=== PATIENT | female | born 1985 | race Hispanic/Latino ===

== ENCOUNTER 2018-06-16 05:11 | Observation (INO) | payer OTHER ==
[~2018-06-16] VITALS: Ht 149.9 cm; Wt 70.9 kg
[2018-06-16] MEDS ORDERED: IPRATROPIUM/ALBUTEROL SULFATE 3 ML SOLUTION IH ONE ×4 (05:13→13:38)
[2018-06-16] MEDS ORDERED: METHYLPREDNISOLONE SOD SUCC 125MG/2ML VIAL ONE (05:24)
[2018-06-16] MEDS ORDERED: MAGNESIUM 2GM PREMIX 50ML 50 ML IV ONE (05:24)
[2018-06-16 05:28] LABS: ABG BASE EXCESS -4.3 mmol/L (-2.0-3.0); ABG HCO3 20.9 mmol/L (21.0-28.0); ABG OXYGEN SATURATION 96.1 % (95.0-99.0); ABG PCO2 39 mmHg (32-45)
[2018-06-16 05:29] LABS: BASOPHILS % (AUTO) 0.4 % (0.0-5.0); EOSINOPHILS % (AUTO) 11.6 % (0.0-8.0); HEMATOCRIT 40.1 % (36-48); LYMPHOCYTES % (AUTO) 29.3 % (21.0-51.0); MEAN CORPUSCULAR HGB CONC 34.6 g/dL (32.0-36.0); MEAN CORPUSCULAR VOLUME 95.4 fL (79-99); NEUTROPHILS % (AUTO) 51.7 % (40.0-77.0); PLATELET COUNT (AUTO) 347 K/uL (130-400); RED CELL DISTRIBUTION WIDTH 14.7 % (11.0-15.5); WHITE BLOOD COUNT (AUTO) 15.2 K/uL (4.8-10.8)
[2018-06-16 05:44] LABS: ALBUMIN 3.8 g/dL (3.5-5.0); BILIRUBIN,TOTAL 0.2 mg/dL (0.2-1.0); CREATININE 0.7 mg/dL (0.5-1.5); POTASSIUM 3.7 mmol/L (3.5-5.1); TOTAL PROTEIN, SERUM 8.3 g/dL (6.0-8.3)
[2018-06-16 05:57] LABS: B-TYPE NATRIURETIC PEPTIDE 9 pg/mL (0-100)
[2018-06-16] MEDS ORDERED: KETOROLAC TROMETHAMINE 30MG/ML ONE (06:18)
[2018-06-16 07:09] LABS: APPEARANCE,URINE Clear (CLEAR); BILIRUBIN,URINE Negative (NEGATIVE); COLOR,URINE Yellow (YELLOW); GLUCOSE, URINE (UA) Negative (NEGATIVE); KETONES,URINE 15 mg/dL (NEGATIVE); LEUKOCYTE ESTERASE ,URINE Negative (NEGATIVE); NITRATE,URINE Negative (NEGATIVE); OCCULT BLOOD,URINE Trace (NEGATIVE); PH,URINE 5.5 (5.0-8.0); PROTEIN,URINE Negative (NEGATIVE); UROBILINOGEN,URINE 0.2 mg/dL (0.2-1.0)
[2018-06-16 07:16] LABS: AMPHET/METH SCREEN,URINE NEGATIVE (NEGATIVE); BARBITURATE SCREEN, URINE NEGATIVE (NEGATIVE); BENZODIAZEPINES SCREEN,URINE NEGATIVE (NEGATIVE); CANNABINOID SCREEN,URINE NEGATIVE (NEGATIVE); COCAINE SCREEN,URINE NEGATIVE (NEGATIVE); OPIATE SCREEN,URINE NEGATIVE (NEGATIVE); PHENCYCLIDINE SCREEN,URINE NEGATIVE (NEGATIVE)
[2018-06-16 07:21] LABS: HCG,QUAL RESULT NEGATIVE (NEGATIVE)
[2018-06-16 07:39] LABS: BACTERIA,URINE Rare /HPF (None Seen); RBC,URINE 0-1 /HPF (0-1); SQUAMOUS EPITHELIAL CELL,UR Rare /HPF (0-2); WBC,URINE None Seen /HPF (0-1)
[2018-06-16] MEDS: SODIUM CHLORIDE 0.9% 1000ML 1,000 ML IV SCH (07:49)
[2018-06-16] MEDS ORDERED: METHYLPREDNISOLONE SOD SUCC 125MG/2ML VIAL IV SCH (08:00)
[2018-06-16] MEDS ORDERED: ACETAMINOPHEN-CODEINE 300/30MG TAB PO PRN (08:00)
[2018-06-16] MEDS ORDERED: ACETAMINOPHEN 325 MG TAB PO PRN (08:00)
[2018-06-16] MEDS ORDERED: ONDANSETRON HCL 4 MG/2 ML VIAL IV PRN (08:00)
[2018-06-16] MEDS ORDERED: GUAIFENESIN-DM 200/20 MG 10 ML PO PRN (08:00)
[2018-06-16] MEDS ORDERED: FAMOTIDINE 20MG TAB 20 MG TAB ONE (09:37)
[2018-06-16] MEDS ORDERED: METHYLPREDNISOLONE SOD SUCC 40MG/ML 1ML ONE ×2 (09:37→14:25)
[2018-06-16] MEDS ORDERED: ACETAMINOPHEN-CODEINE 300/30MG TAB ONE (09:51)
[2018-06-16] MEDS: IPRATROPIUM/ALBUTEROL SULFATE 3 ML SOLUTION IH SCH ×4 (10:48→21:37)
[2018-06-16 15:30] VITALS: BP 111/65
--- NOTE | 2018-06-16 16:00 | NUR ---
PT ADMITTED TO ROOM 332, PER SERVICES OF DR. CHAVEZ , PT ON 2 LITER NC . DENIES ANY SOB . OR ASTHMA DISCOMFORT COUGHING WITH NO SECREATION DRY . COUGH , WILL BE PLACED ON DROPLET . REVIEW FALL RISK , AND CALL LIGHT INREACH .
[2018-06-16] MEDS: METHYLPREDNISOLONE SOD SUCC 125MG/2ML VIAL IV SCH ×2 (18:05→21:09)
[2018-06-16] MEDS: CETIRIZINE HCL 5 MG TABLET PO SCH (18:05)
[2018-06-16] MEDS: BUDESONIDE 0.25 MG/2 ML INH IH SCH (18:44)
[2018-06-16 19:15] VITALS: BP 113/60
[2018-06-16] MEDS: FAMOTIDINE 20MG TAB 20 MG TAB PO SCH (21:10)
[2018-06-17 00:01] VITALS: BP 95/48
[2018-06-17] MEDS: METHYLPREDNISOLONE SOD SUCC 125MG/2ML VIAL IV SCH ×3 (00:25→12:12)
[2018-06-17] MEDS: IPRATROPIUM/ALBUTEROL SULFATE 3 ML SOLUTION IH SCH ×4 (01:05→13:47)
[2018-06-17] MEDS: SODIUM CHLORIDE 0.9% 1000ML 1,000 ML IV SCH (02:35)
[2018-06-17 03:20] VITALS: BP 102/58
[2018-06-17 04:40] LABS: BASOPHILS % (AUTO) 0.1 % (0.0-5.0); HEMATOCRIT 35.4 % (36-48); LYMPHOCYTES % (AUTO) 6.8 % (21.0-51.0); MEAN CORPUSCULAR HEMOGLOBIN 32.7 pg (27.0-33.0); MEAN CORPUSCULAR HGB CONC 34.2 g/dL (32.0-36.0); MEAN CORPUSCULAR VOLUME 95.6 fL (79-99); MONOCYTES % (AUTO) 3.3 % (3.0-13.0); NEUTROPHILS % (AUTO) 89.8 % (40.0-77.0); PLATELET COUNT (AUTO) 342 K/uL (130-400); RED CELL DISTRIBUTION WIDTH 14.9 % (11.0-15.5); WHITE BLOOD COUNT (AUTO) 17.1 K/uL (4.8-10.8)
[2018-06-17 05:19] LABS: CREATININE 0.6 mg/dL (0.5-1.5); POTASSIUM 3.5 mmol/L (3.5-5.1)
[2018-06-17] MEDS: BUDESONIDE 0.25 MG/2 ML INH IH SCH (06:52)
[2018-06-17 08:00] VITALS: BP 97/53
[2018-06-17] MEDS ORDERED: METFORMIN HCL 500 MG TAB.SR.24H PO SCH (08:00)
[2018-06-17] MEDS ORDERED: GLIPIZIDE XL 10MG TAB PO SCH (08:00)
--- NOTE | 2018-06-17 08:00 | NUR ---
PT AAO X 3 .REVIEW PLAN OF CARE, DENIES ANY SOB. NOTED NO WHEEZING ON ROOM AIR. CALL LIGHT IN REACH
[2018-06-17] MEDS ORDERED: MONTELUKAST SODIUM 10 MG TAB PO SCH (09:00)
[2018-06-17] MEDS ORDERED: LISINOPRIL 40 MG TABLET PO SCH (09:00)
[2018-06-17] MEDS: CETIRIZINE HCL 5 MG TABLET PO SCH (09:53)
[2018-06-17] MEDS: FAMOTIDINE 20MG TAB 20 MG TAB PO SCH (09:53)
[2018-06-17 12:00] VITALS: BP 81/34
[2018-06-17] MEDS ORDERED: GLIP10TA PO (13:00)
[2018-06-17] MEDS ORDERED: LISI40TA4 PO (13:00)
[2018-06-17] MEDS ORDERED: PRED20TA3 PO (13:00)
[2018-06-17] MEDS ORDERED: MONT10TA21 PO (13:00)
[2018-06-17] MEDS ORDERED: METF500T3 PO (13:00)
[2018-06-17] MEDS ORDERED: ALBU18HF7 IH (15:38)
--- NOTE | 2018-06-17 16:50 | NUR ---
PT DISCHARGE SUMMARY REVIEW WITH PT. . AT PRESENT . MEDICATION PRESCRIPTION . REVIEW . SL TO HER RT . HAND DC, WITH NO HEMATOMA. NOTED. NOTED NO SOB. OR WHEEZING . .
--- NOTE | 2018-06-17 17:00 | NUR ---
DASH NOTE PT AMD, INDP OF ADLS, DC ORDER, NO EEDS EXPRESSED TO DASH OR MILY CARD IA DEFERRED Addendum: 06/19/18 at 0849 by HUMBERTO DUNCAN RN CM Amended: Links added.
== END 2018-06-17 16:45 | disposition home or self-care (01) ==
LOC: EDH 05:11 → EDHIP 05:12 → 3AH 15:48
PROVIDERS: ADMIT Internal Medicine; ATTEND Internal Medicine
DX: J45.901 Unspecified asthma with (acute) exacerbation (principal); D72.829 Elevated white blood cell count, unspecified; E11.9 Type 2 diabetes mellitus without complications; I10 Essential (primary) hypertension; R09.02 Hypoxemia; Z82.49 Family history of ischemic heart disease and other diseases of the circulatory system; Z79.899 Other long term (current) drug therapy
CPT/HCPCS: 36415 ×2; 36600; 71045; 80048; 80053; 80305; 81001; 81025; 82803; 82948 ×4; 83880; 84484; 85025 ×2; 93005; 94640 ×12; 94664; 96374; 96375; 96376; 99291; G0378 ×36; J1885; J2920 ×2; J2930 ×4; J3475

== ENCOUNTER 2024-08-16 01:38 | Emergency (ER) | payer SELFPAY ==
[~2024-08-16] VITALS: Ht 152.4 cm; Wt 80.7 kg
[~2024-08-16 01:38] MED LIST: ALBU18HF7 IH; GLIP10TA2 PO; LISI40TA15 PO; METF500T3 PO; MONT-46 PO; PRED20TA3 PO
--- NOTE | 2024-08-16 02:10 | ERN ---
ED Note History of Present Illness Stated Complaint: VAGINAL BLEEDING Chief Complaint: Vaginal Bleeding Time Seen by : 01:43 Dictation: This is a 38-year-old female who came to the emergency room with complaints of vaginal bleeding that started today. Was just light pink tinged drainage she also had a picture on her cell phone of a small clot. She had only used 1 pad. Per her calculation it is 8 weeks or 10.5 weeks. Due date estimated is 03 09 25. She always has chronic pain in the left lower quadrant to the back during . Temperature 98 pulse 78 respirations 16 blood pressure 121/69 with a pulse oximetry of 98% on room air Patient has a history of hypertension diabetes and also asthma Allergies: Uncoded Allergies: NONE (Allergy, Unknown, 06/16/18) Home Meds Active Scripts Albuterol Sulfate (Ventolin Hfa) 18 Gm Hfa.aer.ad, 18 GM IH QID PRN for SHORTNESS OF BREATH for 30 Days, #30 INHALER Prov:NAIMA CHAVEZ Jr., MD 06/17/18 Prednisone (Prednisone) 20 Mg Tablet, 20 MG PO DAILY for 5 Days, #5 TAB Prov:NAIMA CHAVEZ Jr., MD 06/17/18 Glipizide (Glucotrol Xl) 10 Mg Tab.er.24, 10 MG PO DAILYBKFST for 30 Days, #30 MG Prov:NAIMA CHAVEZ Jr., MD 06/17/18 Montelukast Sodium (Singulair 10Mg) 10 Mg Tab, 10 MG PO DAILY for 30 Days, #30 TAB Prov:NAIMA CHAVEZ Jr., MD 06/17/18 Lisinopril (Lisinopril) 40 Mg Tablet, 40 MG PO DAILY for 30 Days, #30 TAB Prov:NAIMA CHAVEZ Jr., MD 06/17/18 Metformin HCl (Glucophage Xr) 500 Mg Tab.er.24h, 1000 MG PO DAILYBKFST for 30 Days, #30 TAB Prov:NAIMA CHAVEZ Jr., MD 06/17/18 Past Medical History Past Medical History: Asthma, Diabetes-Type II Surgical History: None Family History: Negative Social History: Negative : 3 Para: 2 RN Note Reviewed/Agreed w/PFSH: Yes Review of System Dictation Constitutional: Negative for fever,chills, and weight loss Eyes: Negative for injury, pain,redness, and discharge ENT: Negative for injury,pain or swelling Cardiovascular: Negative for chest pain, palpitations, and edema Respiratory: Negative for shortness of breath, cough, and wheezing, Abdomen/GI: Negative for abdominal pain, nausea, vomiting, diarrhea, and constipation Back: Negative for injury and pain : Negative for injury, bleeding and discharge positive for vaginal bleeding positive for MS/Extremity: Negative for injury and deformity Skin: Negative for rash, and discoloration Neuro: Negative for headache, weakness, numbness, tingling, and seizure Psych: Negative for suicide ideation, homicidal ideation, and hallucinations Initial Vital Sign VS Vital Signs Date Time Temp Pulse Resp B/P (MAP) Pulse Ox O2 Delivery O2 Flow Rate FiO2 08/16/24 01:39 98.1 78 16 121/69 97 Room Air 08/16/24 01:50 0 21 Physical Exam Dictation General: awake, alert, NAD obese female Head/Face: Normocephalic, atraumatic Eyes: PERRL, EOMI, vision at baseline ENT: oral cavity clear, TMs clear, no signs of infection Neck: Trachea midline, supple, no nuchal rigidity Cardiovascular: RRR, normal S1/S2, No MRGs, no JVD Respiratory: CTAB, no respiratory distress, No rales or wheezes Abdomen: Soft, non-tender, non-distended, normal bowel sounds, no guarding or rebound. Skin: Warm, dry, normal turgor, no rash MS/Extremity: Pulses equal, no cyanosis, neurovascular intact, FROM Neuro: COAx4, GCS 15, strength 5/5, CN 2-12 intact, normal cerebellar exam, normal gait, Psych: Normal behavior, mood, and affect normal Extremities-trace edema without any palpable cords, Homans sign is negative Results (Laboratory/Radiology) Laboratory/Radiology Laboratory Tests Test 08/16/24 01:59 White Blood Count 9.7 K/uL (4.8-10.8) Red Blood Count 3.53 MIL/uL (4.00-5.50) L Hemoglobin 10.6 g/dL (12.0-16.0) L Hematocrit 31.4 % (36-48) L Mean Corpuscular Volume 89.0 fL (79-99) Mean Corpuscular Hemoglobin 30.0 pg (27.0-33.0) Mean Corpuscular Hemoglobin Concent 33.8 g/dL (32.0-36.0) Red Cell Distribution Width 16.8 % (11.0-15.5) H Platelet Count 350 K/uL (130-400) Mean Platelet Volume 9.9 fL (7.5-10.5) Immature Granulocyte % (Auto) 0.4 % (0-1) Neutrophils (%) (Auto) 51.6 % (40.0-77.0) Lymphocytes (%) (Auto) 31.2 % (21.0-51.0) Monocytes (%) (Auto) 9.5 % (3.0-13.0) Eosinophils (%) (Auto) 7.1 % (0.0-8.0) Basophils (%) (Auto) 0.2 % (0.0-5.0) Neutrophils # (Auto) 5.0 K/uL (1.8-7.7) Lymphocytes # (Auto) 3.0 K/uL (1.0-4.8) Monocytes # (Auto) 0.9 K/uL (0.1-1.0) Eosinophils # (Auto) 0.69 K/uL (0.00-0.70) Basophils # (Auto) 0.02 K/uL (0.00-0.20) Absolute Immature Granulocyte (auto 0.04 K/uL (0-1) Nucleated Red Blood Cells 0.0 % (0.0-0.19) Sodium Level 139 mmol/L (136-145) Potassium Level 3.4 mmol/L (3.5-5.1) L Chloride Level 104 mmol/L (101-111) Carbon Dioxide Level 28 mmol/L (21-32) Blood Urea Nitrogen 9 mg/dL (7-18) Creatinine 0.6 mg/dL (0.5-1.0) Glomerular Filtration Rate Calc 118 mL/min (>90) Random Glucose 116 mg/dL (70-105) H Total Calcium 8.6 mg/dL (8.5-10.1) Serum Test, Qualitative POSITIVE (NEGATIVE) H Labs Reviewed?: Yes ED Course ED Course Orders Procedure Category Date Status Time Cbc With Differential LAB 08/16/24 Complete 01:42 Basic Metabolic Panel LAB 08/16/24 Complete 01:42 Urinalysis Profile LAB 08/16/24 Logged 01:42 Testing, LAB 08/16/24 Complete Serum Hcg 01:42 Us Ob <14 Weeks US 08/16/24 Taken 02:37 Vital Signs Date Time Temp Pulse Resp B/P (MAP) Pulse Ox O2 Delivery O2 Flow Rate FiO2 08/16/24 01:50 98.1 71 18 108/65 99 Room Air* 0 21 08/16/24 01:39 98.1 78 16 121/69 97 Room Air We will perform diagnostic labs, advanced imaging and administer medications according to the patient's complaint. Once the results are available, will revi ew and personally interpreted the labs to rule out any acute life-threatening emergency the trach require immediate intervention and treatment. I will then re-evaluate the patient after treatment and diagnostic exams have return to determine whether the patient requires any further testing, can safely be discharged home or need further admission to hospital for additional treatment and evaluation. Labs reviewed CBC showed a white count of 9.7 hemoglobin of 10.6 platelets 350 BNP 7 shows a potassium of 3.4. Serum test is positive OB ultrasound less than 14 weeks-anechoic structure noted in the uterus which could be gestational sac no obvious pole was noted. It appears patient could be 8 weeks per her information. 3:28 a.m. I had a long discussion with patient and spouse about the lab findings and the preliminary ultrasound results and presented that this maybe still a very early stage in and that she must follow up with her OBGYN clinic to get serial beta hCG and an ultrasound. I explained to her at this time it is too early to assume threat of . They both verbalized full understanding and they will follow up on Saturday with a [facility] clinic Medical Decision Making MDM MDM: Differential diagnosis: Implantation bleeding, subchorionic hemorrhage, threat of Rationale: Tests considered and ordered secondary to shared decision making include: Previous outside records reviewed: Old ER visits. Risk of complication and/or morbidity or mortality of patient management: None Medications-Per medication reconciliation Need for hospitalization: Patient does not meet criteria for hospitalization. Need for emergency major/minor surgery: No There are no social concerns with this patient. Prescription drug management Prescriptions will include symptomatic care Patient's prior external medical records from other ER visits were reviewed by me as indicated. Prior testing and results from previous visits were reviewed. Prior tests were taken into account with medical decision making and resource utilization, independent historian/historians were used to obtain complete medical history. I independently interpreted the test that were performed, results were reviewed by me and considered findings on radiology if ordered. Medical management and examination interpretation discussions were had by me with other qualified healthcare professionals as indicated for the patient's care. Problem List Problem List: (1) Vaginal bleeding in patient after first trimester (2) Diabetes mellitus (3) Hypertension DX & DISP Disposition: Discharge Departure Impression: Primary Impression: Vaginal bleeding in patient after first trimester Additional Impressions: Diabetes mellitus, Hypertension Condition: Stable Additional Instructions: Patient and the caregiver have been informed of all the diagnostic tests and the imaging conducted during the today's visit to the emergency room and has verbalized understanding of the results I have personally reviewed and interpreted all diagnostic exams performed here in the ER today as well as the vital signs documented by the nursing staff. The patient is now being discharged to home and should follow up with the primary care physician or the specialist as directed by the ER staff. Follow-up with primary care provider in 1 to 2 days. Take medications as directed here in the emergency room. Okay to continue home medications unless otherwise discussed during your visit in the emergency room today. Return to your nearest emergency room if symptoms worsen or if there is no improvement. Call 911 if you need immediate assistance. Take Tylenol or Motrin over-the-co unter as needed and if no contraindications are present. Increase oral hydration. A wound culture or urine culture was ordered here in the emergency room department please follow-up with primary care provider and advise them to get repeat ports from our facility. If you had any El wrap/splints that were applied here, please do not remove them until you see your primary care or specialty. Referrals: SELF,REFERRAL (PCP) YOON SADLER MD Aug 16, 2024 02:10
[2024-08-16 02:15] LABS: BASOPHILS # (AUTO) 0.02 K/uL (0.00-0.20); BASOPHILS % (AUTO) 0.2 % (0.0-5.0); EOSINOPHILS # (AUTO) 0.69 K/uL (0.00-0.70); EOSINOPHILS % (AUTO) 7.1 % (0.0-8.0); HEMATOCRIT 31.4 % (36-48); IMMATURE GRANULOCYTE ABSOLUTE 0.04 K/uL (0-1); LYMPHOCYTES % (AUTO) 31.2 % (21.0-51.0); MEAN CORPUSCULAR HGB CONC 33.8 g/dL (32.0-36.0); MONOCYTES # (AUTO) 0.9 K/uL (0.1-1.0); MONOCYTES % (AUTO) 9.5 % (3.0-13.0); NEUTROPHILS % (AUTO) 51.6 % (40.0-77.0); PLATELET COUNT (AUTO) 350 K/uL (130-400); RED BLOOD CELL COUNT(AUTO) 3.53 MIL/uL (4.00-5.50); RED CELL DISTRIBUTION WIDTH 16.8 % (11.0-15.5); WHITE BLOOD COUNT (AUTO) 9.7 K/uL (4.8-10.8)
[2024-08-16 02:26] LABS: CREATININE 0.6 mg/dL (0.5-1.0); POTASSIUM 3.4 mmol/L (3.5-5.1)
[2024-08-16 03:50] VITALS: BP 102/67; PULSE 77; RESP 18; TEMP 98.4; O2SAT 99
--- NOTE | 2024-08-16 07:24 | HMCIMG ---
US OB <14 WEEKS HISTORY: No additional history given. COMPARISON: None TECHNIQUE: Obstetrical ultrasound study was performed. FINDINGS: The uterus measures 12 x 5 x 7 centimeter. Right ovary measures 2 x 1 x 2 centimeter. Left ovary measures 2 x 1 x 2 centimeter. Flow is seen in both ovaries. There is intrauterine saclike structure. In a patient with positive test, differential diagnosis would include early versus ectopic versus missed . Estimated gestational age by sac size is 4 weeks. Beta hCG correlation is recommended. No pole or use seen at this time. No fluid is seen in the cul-de-sac. IMPRESSION: 1. There is intrauterine saclike structure. In a patient with positive test, differential diagnosis would include early versus ectopic versus missed . Estimated gestational age by sac size is 4 weeks. Beta hCG correlation is recommended. No pole or use seen at this time.
== END 2024-08-16 04:12 | disposition home or self-care (01) ==
LOC: EDH 01:38
DX: O20.9 Hemorrhage in early pregnancy, unspecified (principal); O16.1 Unspecified maternal hypertension, first trimester; O24.911 Unspecified diabetes mellitus in pregnancy, first trimester; O99.511 Diseases of the respiratory system complicating pregnancy, first trimester; J45.909 Unspecified asthma, uncomplicated; Z79.52 Long term (current) use of systemic steroids; Z3A.01 Less than 8 weeks gestation of pregnancy; Z79.899 Other long term (current) drug therapy
CPT/HCPCS: 36415; 76801; 80048; 84703; 85025; 99284